=== PATIENT | male | born 1945 | race Caucasian/White ===

== ENCOUNTER 2016-06-15 09:38 | Day surgery (SDC) | payer MEDICARE, OTHER ==
--- NOTE | ~2016-06-15 | EGD ---
EGD REPORT [facility] [address] [id number] NAME: RM GONG : [birth year] STATUS : REG [facility]#: [id number] AGE: 71 ADM/REG DATE : 06/15/16 MR#: [id number] REPORT SERV DATE: 06/15/16 DICTATED BY: KAMAR COREY DATE: 06/15/16 REPORT STATUS : Draft TRANSCRIBED BY: [employer] DATE: 06/15/16 [facility] Patient Name: Rm Gong Date of : 1945 Attending MD: KAMAR COREY MD Procedure Date No Time: 06/15/2016 Procedure: Upper GI endoscopy Indications: Heartburn, Suspected esophageal reflux, Diarrhea Referring MD: JJ FALK Medicines: as per anesthesia Complications: No immediate complications. Procedure: Pre-Anesthesia Assessment: - ASA Grade Assessment: III - A patient with severe systemic disease. After obtaining informed consent, the endoscope was passed under direct vision. Throughout the procedure, the patient's blood pressure, pulse, and oxygen saturations were monitored continuously. The GIF [id number] was introduced through the mouth, and advanced to the third part of duodenum. The upper GI endoscopy was accomplished without difficulty. The patient tolerated the procedure. Findings: The examined esophagus was normal. Localized severe inflammation characterized by erosions, erythema and friability was found in the gastric antrum. Biopsies were taken with a cold forceps for histology. The cardia and gastric fundus were normal on retroflexion. Localized moderate inflammation characterized by erythema was found in the duodenal bulb. Biopsies were taken with a cold forceps for histology. Impression: - Normal esophagus. - Gastritis. Biopsied. - Duodenitis. Biopsied. Recommendation: - Await pathology results. - Follow an antireflux regimen. - Use Prilosec (omeprazole) 40 mg PO daily. Procedure Code(s): --- Professional --- 31317, Esophagogastroduodenoscopy, flexible, transoral; with biopsy, single or multiple Diagnosis Code(s): --- Professional --- EGD REPORT [address] [address] NAME: MR GONG : 45 STATUS : REG [facility] [place] PAT#: [id number] AGE: 71 ADM/REG DATE : 06/15/16 MR#: [id number] REPORT SERV DATE: 06/15/16 DICTATED BY: KAMAR COREY. DATE: 06/15/16 REPORT STATUS : Draft TRANSCRIBED BY: [employer] DATE: 06/15/16 K29.70, Gastritis, unspecified, without bleeding K29.80, Duodenitis without bleeding R12, Heartburn R19.7, Diarrhea, unspecified CPT copyright 2013 [employer]. All rights reserved. The codes documented in this report are preliminary and upon pharmacovigilance specialist review may be revised to meet current compliance requirements. KAMAR COREY MD 06/15/2016 1:29 PM This report has been signed electronically. Number of Addenda: 0 Note Initiated On: 06/15/2016 12:55 PM Scope Withdrawal Time 0 hours 0 minutes [address] [place] [id number]
--- NOTE | ~2016-06-15 | EGD ---
EGD REPORT [facility] [address] [id number] NAME: RM GONG : [birth year] STATUS : REG [facility]#: [id number] AGE: 71 ADM/REG DATE : 06/15/16 MR#: [id number] REPORT SERV DATE: 06/15/16 DICTATED BY: DATE: REPORT STATUS : Draft TRANSCRIBED BY: [employer] DATE: 06/15/16 [facility] Patient Name: Rm Gong Date of : 1945 Attending MD: KAMAR COREY MD Procedure Date No Time: 06/15/2016 Procedure: Colonoscopy Indications: Clinically significant diarrhea of unexplained origin Referring MD: JJ FALK Medicines: as per anesthesia Complications: No immediate complications. Procedure: After I obtained informed consent, the scope was passed under direct vision. Throughout the procedure, the patient's blood pressure, pulse, and oxygen saturations were monitored continuously. The PCF [id number] was introduced through the anus and advanced to the cecum, identified by appendiceal orifice and ileocecal valve. The colonoscopy was performed without difficulty. The patient tolerated the procedure. The quality of the bowel preparation was adequate to identify polyps. Findings: The perianal and digital rectal examinations were normal. Many small and large-mouthed diverticula were found in the sigmoid colon and in the descending colon. Internal hemorrhoids were found during endoscopy and were mild. Four biopsies were obtained in the rectum and in the ascending colon with cold forceps for histology. Impression: - Diverticulosis in the sigmoid colon and in the descending colon. - Internal hemorrhoids. - Four biopsies were obtained in the rectum and in the ascending colon. Recommendation: - Await pathology results. - Repeat colonoscopy in 5 years for surveillance. Procedure Code(s): --- Professional --- 31548, Colonoscopy, flexible, proximal to splenic flexure; with biopsy, single or multiple Diagnosis Code(s): --- Professional --- K64.8, Other hemorrhoids K57.30, Diverticulosis of large intestine without EGD REPORT [facility] [address] [address] NAME: RM GONG : [birth year] STATUS : REG [facility]#: [id number] AGE: 71 ADM/REG DATE : 06/15/16 MR#: [id number] REPORT SERV DATE: 06/15/16 DICTATED BY: DATE: REPORT STATUS : Draft TRANSCRIBED BY: [employer] DATE: 06/15/16 perforation or abscess without bleeding R19.7, Diarrhea, unspecified CPT copyright 2013 [employer]. All rights reserved. The codes documented in this report are preliminary and upon dramatic reader review may be revised to meet current compliance requirements. KAMAR COREY MD 06/15/2016 1:50 PM This report has been signed electronically. Number of Addenda: 0 Note Initiated On: 06/15/2016 1:26 PM Scope Withdrawal Time 0 hours 9 minutes 33 seconds [address] [id number]
[~2016-06-15 09:38] MED LIST: AMIT10 PO; ASAB PO; CITRUCELSF PO; COLCRYS0.6 MG PO; COREG12 PO; COREG6 PO; COZ25 PO; COZ50 PO; CRESTOR40 MG PO; ETODOLAC500 MG OR; FLOMAX4 PO; JALYN; LEXAPRO10 PO; MULTIPLE VIT PO; MULTIVITAMI1 PO; PLAVIX PO; PROBIOTIC; PROTONIX PO; ULTRAM50 PO; VALTREX5 PO; VITC500 PO; X25 PO; ZYRTEC ALLGY10 MG PO
== END 2016-06-15 23:59 | disposition home or self-care (01) ==
LOC: DMU 09:38
PROVIDERS: Internal Medicine Gastroenterology
PROC: 0DB68ZZ Excision of Stomach, Via Natural or Artificial Opening Endoscopic (ICD-10-PCS; 2016-06-15)
PROC: 0DB98ZX Excision of Duodenum, Via Natural or Artificial Opening Endoscopic, Diagnostic (ICD-10-PCS; 2016-06-15)
PROC: 0DB68ZX Excision of Stomach, Via Natural or Artificial Opening Endoscopic, Diagnostic (ICD-10-PCS; 2016-06-15)
PROC: 0DBP8ZX Excision of Rectum, Via Natural or Artificial Opening Endoscopic, Diagnostic (ICD-10-PCS; principal; 2016-06-15 11:00)
PROC: 0DBK8ZX Excision of Ascending Colon, Via Natural or Artificial Opening Endoscopic, Diagnostic (ICD-10-PCS; 2016-06-15 11:00)
DX: K62.1 Rectal polyp (principal); K64.8 Other hemorrhoids; K57.30 Diverticulosis of large intestine without perforation or abscess without bleeding; R19.7 Diarrhea, unspecified; I10 Essential (primary) hypertension; I42.9 Cardiomyopathy, unspecified
CPT/HCPCS: 88305; 88309; J2370